=== PATIENT | male | born 1985 | race Caucasian/White ===

== ENCOUNTER 2022-07-29 08:51 | Day surgery (SDC) | payer OTHER ==
[~2022-07-29] VITALS: Ht 170.2 cm; Wt 57.9 kg
[~2022-07-29 08:51] MED LIST: CLIN300 PO; IBUP600 PO; NAPR500 PO; OTC ALLERGY MED PRN; OXYACE5T PO
--- NOTE | 2022-07-29 10:37 | NUR ---
07/29/22 Mere Brennan 30ML OF ROPIVACAINE 0.5% MIXED AND VERIFIED WITH 0.15ML OF EPI (1MG/ML) TO MAKE ROPIVACAINE 0.5% 1:200,000 FOR INJECTION AT [facility] BY DR BUSCH. 30ML INJECTED.
[2022-07-29 12:14] VITALS: BP 119/74
--- NOTE | 2022-07-29 12:18 | NUR ---
07/29/22 1218 LIIDA ABRAHAM PT SITTING IN RECLINER. MOTHER AT SIDE. AT FIRST PATIENT STATES THAT HIS PAIN IS 3/10. THEN STATES GETTING WORSE. AND DENIED HAVING NAUSEA. NOW THAT MOM IS IN THE ROOM, PT STATES NO PAIN BUT NOW NAUSEA. WILL GIVE SOMETHING FOR NAUSEA.
== END 2022-07-29 12:44 | disposition home or self-care (01) ==
LOC: ORSCSDS 08:51
PROVIDERS: Podiatrist Foot & Ankle Surgery
PROC: 0SGM04Z Fusion of Right Metatarsal-Phalangeal Joint with Internal Fixation Device, Open Approach (ICD-10-PCS; principal; 2022-07-29 10:00)
PROC: 0SPM04Z Removal of Internal Fixation Device from Right Metatarsal-Phalangeal Joint, Open Approach (ICD-10-PCS; principal; 2022-07-29 10:00)
DX: M20.21 Hallux rigidus, right foot (principal); T84.84XA Pain due to internal orthopedic prosthetic devices, implants and grafts, initial encounter; M19.071 Primary osteoarthritis, right ankle and foot; M79.671 Pain in right foot; J45.909 Unspecified asthma, uncomplicated; Z79.899 Other long term (current) drug therapy
CPT/HCPCS: A9270; C1713; J0171; J1100; J2250; J2405; J2704; J2795; J3010

== ENCOUNTER 2024-08-18 18:28 | Emergency (ER) | payer OTHER ==
[~2024-08-18] VITALS: Ht 167.6 cm; Wt 61.2 kg
[~2024-08-18 18:28] MED LIST changes: +LEVFLO500 PO
[2024-08-18 18:38] VITALS: BP 75/40
[2024-08-18] MEDS ORDERED: NS 2,000 ML IV ONE (18:41)
[2024-08-18 18:51] LABS: BASOPHILS ABSOLUTE AUTO 0.03 K/mm3 (0.00-0.23); BASOPHILS PERCENT AUTO 0 % (0-2); EOSINOPHILS ABSOLUTE AUTO 0.11 K/mm3 (0.00-0.68); EOSINOPHILS PERCENT AUTO 1 % (0-6); Hematocrit 40.5 % (37.0-53.0); Hemoglobin 13.6 g/dL (13.5-17.5); IMMATURE GRAN ABSOLUTE AUTO 0.02 K/mm3 (0.00-0.10); IMMATURE GRAN PERCENT AUTO 0 % (0-1); LYMPHOCYTES ABSOLUTE AUTO 3.55 K/mm3 (0.84-5.20); LYMPHOCYTES PERCENT AUTO 33 % (21-46); MONOCYTES ABSOLUTE AUTO 1.03 K/mm3 (0.16-1.47); MONOCYTES PERCENT AUTO 10 % (4-13); Mean Corpuscular HGB 30.7 pg (26.0-34.0); Mean Corpuscular HGB Conc 33.6 g/dL (31.5-36.5); Mean Corpuscular Volume 91 fL (80-100); Mean Platelet Volume 9.5 fL (9.1-12.4); NEUTROPHILS ABSOLUTE AUTO 5.97 K/mm3 (1.96-9.15); NEUTROPHILS PERCENT AUTO 56 % (41-73); Platelet Count 223 K/mm3 (150-400); RDW Coefficient Variation 12.1 % (11.7-14.2); RDW Standard Deviation 40.9 fL (35.1-46.3); Red Blood Cell Count 4.43 M/mm3 (4.30-5.90); White Blood Cell Count 10.71 K/mm3 (4.00-11.30)
[2024-08-18] MEDS ORDERED: NS 1,000 ML IV SCH (18:55)
[2024-08-18] MEDS ORDERED: Tranexamic Acid 100 ML IV ONE (19:05)
[2024-08-18 19:11] LABS: Albumin, Blood 3.5 g/dL (3.4-5.0); Albumin/Globulin Ratio 1.1 (0.8-1.8); Bilirubin, Total 0.3 mg/dL (0.1-1.0); Bun/Creatinine Ratio 16.3 (12.0-20.0); Calcium, Blood 8.4 mg/dL (8.5-10.1); Creatinine, Blood 1.04 mg/dL (0.60-1.20); Globulin, Blood 3.1 g/dL (2.2-4.0); Potassium, Blood 3.3 mmol/L (3.5-5.5); Total Protein, Blood 6.6 g/dL (6.4-8.2)
[2024-08-18] MEDS ORDERED: FentaNYL Citrate 50 MCG/ML 2 ML Injection ONE (19:34)
[2024-08-18] MEDS ORDERED: Ketamine HCL 1,000 MG in NS 100 ML IV SCH (19:45)
[2024-08-18] MEDS ORDERED: Ketamine HCl 100 MG / ML 5ML Vial IV ONE (19:45)
[2024-08-18] MEDS ORDERED: Rocuronium Bromide 10 MG/ML 5ML Injection IV ONE (21:32)
[2024-08-18] MEDS ORDERED: Phenylephrine HCl 100 MCG/ML-NS 10MLSYR (1MG/10ML) IV ONE (21:32)
[2024-08-18] MEDS ORDERED: Midazolam HCl 1MG / ML 2ML Vial XX ONE (21:32)
[2024-08-18] MEDS ORDERED: Ketamine HCl 100 MG / ML 5ML Vial XX ONE (21:32)
== END 2024-08-18 19:50 | disposition home or self-care (01) ==
LOC: ER 18:28
PROVIDERS: Student in an Organized Health Care Education/Training Program
DX: S21.342A Puncture wound with foreign body of left front wall of thorax with penetration into thoracic cavity, initial encounter (principal); S26.90XA Unspecified injury of heart, unspecified with or without hemopericardium, initial encounter; I95.9 Hypotension, unspecified; R62.50 Unspecified lack of expected normal physiological development in childhood; Z88.8 Allergy status to other drugs, medicaments and biological substances; Z91.011 Allergy to milk products; Z91.048 Other nonmedicinal substance allergy status; Z88.0 Allergy status to penicillin; Z91.018 Allergy to other foods; W29.4XXA Contact with nail gun, initial encounter
CPT/HCPCS: 31500; 51702; 71045; 71046; 71260; 80053; 82947; 84484; 85025; 86850; 86900; 86901; 86923; 94002; J2250; J2371; J3010; J7030; J7060; P9016; Q9967

== ENCOUNTER 2024-10-21 19:43 | Emergency (ER) | payer OTHER ==
[~2024-10-21] VITALS: Ht 170.2 cm; Wt 60.8 kg
[2024-10-21 20:14] VITALS: BP 151/90
[2024-10-21] MEDS ORDERED: Tetracaine HCl/Pf 0.5% Opth Soln 4 ml RIGHTEYE ONE (22:55)
[2024-10-21] MEDS ORDERED: Fluorescein Sod 1MG Opth Strips RIGHTEYE ONE (22:55)
[2024-10-21] MEDS ORDERED: Ofloxacin 0.3% Opth Soln 5 ML RIGHTEYE ONE (23:30)
[2024-10-21] MEDS ORDERED: Erythromycin 0.5% Opth Oint 1 gm RIGHTEYE ONE (23:30)
[2024-10-21] MEDS ORDERED: OCUFLOX510 RIGHTEYE (23:33)
[2024-10-21] MEDS ORDERED: ERYT1OIN RIGHTEYE (23:33)
== END 2024-10-22 00:10 | disposition home or self-care (01) ==
LOC: ER 19:43
DX: S05.01XA Injury of conjunctiva and corneal abrasion without foreign body, right eye, initial encounter (principal); W22.8XXA Striking against or struck by other objects, initial encounter; Z88.0 Allergy status to penicillin; Z91.018 Allergy to other foods; Z91.011 Allergy to milk products; Z88.8 Allergy status to other drugs, medicaments and biological substances; Z79.01 Long term (current) use of anticoagulants
CPT/HCPCS: 99283; A9270